=== PATIENT | female | born 1960 | race Caucasian/White ===

== ENCOUNTER → 2020-12-23 | Outpatient (CLI) | payer MEDICARE, OTHER ==
[~2020-12-23] MED LIST: ACYCLOVIR30 GM TOP; ANUSOL HC SUPP1 SUPP PR; ASPIRIN EC81 MG PO; CARTIA XT180 MG PO; CRESTOR10 MG PO; FISH OIL 1,0001 EAC4 PO; HYDROCHLOROTHIA25 MG PO; HYDROCODONE-CH473 ML PO; IBUPROFEN400 MG PO; LEVOTHYROXINE100 MCG PO; LOW DOSE ASPIRI81 MG PO; METOPROLOL ER PO; METOPROLOL SUCC50 MG PO; OMEPRAZOLE20 M1 PO; OMEPRAZOLE20 MG PO; ROBITUSSIN100 MG/5 M PO; SYNTHROID100 MCG PO; TESSALON PERLE100 MG PO; TOPROL XL 25 MG25 MG PO; VITAMIN D325 MC6 PO; XYZAL5 MG PO; [UNRECOGNIZED DRUG - OTHER] TOP
== END ==
LOC: KOH-I 09:32
DX: M79.672 Pain in left foot (principal); M79.671 Pain in right foot; M19.072 Primary osteoarthritis, left ankle and foot
CPT/HCPCS: 73630

== ENCOUNTER → 2021-10-12 | Outpatient (CLI) | payer MEDICARE, OTHER | LOC: KOH-I 10:50 | DX: M51.15 Intervertebral disc disorders with radiculopathy, thoracolumbar region (principal); M51.16 Intervertebral disc disorders with radiculopathy, lumbar region; M54.2 Cervicalgia; M47.812 Spondylosis without myelopathy or radiculopathy, cervical region; M47.814 Spondylosis without myelopathy or radiculopathy, thoracic region; M43.17 Spondylolisthesis, lumbosacral region | CPT/HCPCS: 72040; 72070; 72100 ==